=== PATIENT | male | born 1990 | race Caucasian/White ===

== ENCOUNTER 2016-08-31 02:44 | Inpatient (IN) | payer MEDICAID, OTHER ==
[~2016-08-31] VITALS: Ht 185.4 cm; Wt 80.1 kg
[2016-08-31] MEDS ORDERED: HALOPERIDOL LACTATE 5 MG/ML VIAL IM ONE (03:15)
[2016-08-31] MEDS ORDERED: DiphenhydrAMINE HCL 50 MG/ML VIAL IM ONE (03:15)
[2016-08-31] MEDS ORDERED: LORazepam 2 MG/ML VIAL IM ONE (03:15)
[2016-08-31 05:23] LABS: BASOPHILS % (AUTO) 0.2 % (0.0-2.0); EOSINOPHILS % (AUTO) 0.6 % (1.0-6.0); HEMATOCRIT 45.7 % (41-53); HEMOGLOBIN 14.9 g/dL (13.5-17.5); LYMPHOCYTES # (AUTO) 1.5 K/uL (1.0-4.8); LYMPHOCYTES % (AUTO) 13.7 % (22.0-44.0); MEAN CORPUSCULAR HEMOGLOBIN 27.9 pg (26.0-34.0); MEAN CORPUSCULAR HGB CONC 32.6 G/dL (31.0-37.0); MEAN CORPUSCULAR VOLUME 86 fL (80-100); MONOCYTES # (AUTO) 1.3 K/uL (0.1-1.0); MONOCYTES % (AUTO) 11.4 % (2.0-9.0); NEUTROPHILS # (AUTO) 8.1 K/uL (1.8-7.7); NEUTROPHILS % (AUTO) 74.1 % (40.0-70.0); PLATELET COUNT (AUTO) 226 K/uL (150-450); RED BLOOD CELL COUNT(AUTO) 5.33 MIL/uL (4.50-5.90); RED CELL DISTRIBUTION WIDTH 13.7 % (11.5-14.5)
[2016-08-31 05:25] LABS: ANION GAP 9 mmol/L (8-16); CALCIUM, TOTAL 9.7 mg/dL (8.8-10.5); CARBON DIOXIDE 29 mmol/L (22-29); CHLORIDE 101 mmol/L (98-107); CREATININE 1.08 mg/dL (0.60-1.30); GLOMERULAR FILTR. RATE CALC > 60 mL/min (>60); POTASSIUM 4.8 mmol/L (3.5-5.1); SODIUM SERUM 139 mmol/L (136-145); UREA NITROGEN, BLOOD 21 mg/dL (7-18)
[2016-08-31 05:30] LABS: ALANINE AMINOTRANSFERASE 22 U/L (12-78); ALBUMIN 4.3 g/dL (3.4-5.0); ASPARTATE AMINOTRANSFERASE 21 U/L (15-37); BILIRUBIN,TOTAL 0.8 mg/dL (0.1-1.0); TOTAL PROTEIN, SERUM 7.8 g/dL (6.4-8.2)
[2016-08-31 13:57] VITALS: BP 119/74
[2016-08-31] MEDS ORDERED: INFLUENZA VIRUS VACCINE QVS 2016-17 (3YR+)/PF 60 MCG/0.5 ML SYRINGE IM ONE (14:00)
[2016-09-01] MEDS: BENZTROPINE MESYLATE 0.5 MG TABLET PO SCH ×2 (09:00→17:00)
[2016-09-01] MEDS ORDERED: HALOPERIDOL 5 MG TABLET PO SCH (09:00)
[2016-09-01] MEDS: RisperiDONE 2 MG TABLET PO SCH (17:00)
[2016-09-01] MEDS ORDERED: ONDANSETRON HCL 4 MG TABLET PO PRN (17:45)
[2016-09-01] MEDS ORDERED: PETROLATUM,WHITE 71 GM JELLY TP PRN (17:45)
[2016-09-01] MEDS ORDERED: ALBUTEROL SULFATE HFA 90 MCG/PUFF 8 GM INHALER IH PRN (17:45)
[2016-09-01] MEDS ORDERED: ACETAMINOPHEN 325 MG TABLET PO PRN (17:45)
[2016-09-01] MEDS ORDERED: MAG HYDROX/AL HYDROX/SIMETH ES 30 ML SUSPENSION UDCUP PO PRN (17:45)
[2016-09-01] MEDS ORDERED: BACITRACIN 28.4 GM OINTMENT TP PRN (17:45)
[2016-09-01] MEDS ORDERED: MAGNESIUM HYDROXIDE SUSPENSION 30 ML UDCUP PO PRN (17:45)
[2016-09-01] MEDS ORDERED: BENZOCAINE/MENTHOL LOZENGE MM PRN (17:45)
[2016-09-01] MEDS ORDERED: IBUPROFEN 600 MG TABLET PO PRN (17:45)
[2016-09-01] MEDS ORDERED: CloNIDine HCL 0.1 MG TABLET PO PRN (17:45)
[2016-09-01] MEDS ORDERED: LOPERAMIDE HCL 2 MG CAPSULE PO PRN (17:45)
[2016-09-01] MEDS ORDERED: BENZTROPINE MESYLATE 0.5 MG TABLET ONE ×2 (23:33)
[2016-09-01] MEDS ORDERED: RisperiDONE 2 MG TABLET ONE (23:33)
[2016-09-02 04:25] VITALS: BP 117/83
[2016-09-02] MEDS: LORazepam 2 MG TABLET PO PRN ×4 (04:30→21:33)
[2016-09-02] MEDS: HALOPERIDOL 5 MG TABLET PO PRN ×3 (05:23→16:50)
[2016-09-02 08:12] VITALS: BP 114/77
[2016-09-02] MEDS: RisperiDONE 2 MG TABLET PO SCH ×2 (09:00→16:35)
[2016-09-02] MEDS: BENZTROPINE MESYLATE 0.5 MG TABLET PO SCH ×2 (09:00→16:35)
[2016-09-02 16:00] VITALS: BP 116/74
[2016-09-02] MEDS: ZOLPIDEM TARTRATE 10 MG TABLET PO PRN (21:24)
[2016-09-03 06:05] VITALS: BP 116/70
[2016-09-03 08:10] VITALS: BP 111/70
[2016-09-03] MEDS: BENZTROPINE MESYLATE 0.5 MG TABLET PO SCH ×2 (09:42→17:17)
[2016-09-03] MEDS: RisperiDONE 2 MG TABLET PO SCH ×2 (09:42→17:17)
[2016-09-03] MEDS ORDERED: GuaiFENesin/D-METHORPHAN/PHENYLEPH 5 ML LIQUID ORAL.SYG PO PRN (10:30)
[2016-09-03] MEDS: LORazepam 2 MG TABLET PO PRN ×3 (10:30→21:29)
[2016-09-03] MEDS: NICOTINE 21 MG/24 HOUR PATCH TD SCH (12:39)
[2016-09-03 16:08] VITALS: BP 125/77
[2016-09-03] MEDS: HALOPERIDOL 5 MG TABLET PO PRN (17:17)
[2016-09-03] MEDS: ZOLPIDEM TARTRATE 10 MG TABLET PO PRN (20:32)
[2016-09-04 06:15] VITALS: BP 119/75
[2016-09-04 08:10] VITALS: BP 124/66
[2016-09-04] MEDS: NICOTINE 21 MG/24 HOUR PATCH TD SCH (08:24)
[2016-09-04] MEDS: BENZTROPINE MESYLATE 0.5 MG TABLET PO SCH ×2 (08:25→16:42)
[2016-09-04] MEDS: HALOPERIDOL 5 MG TABLET PO PRN ×2 (08:25→17:41)
[2016-09-04] MEDS: RisperiDONE 2 MG TABLET PO SCH ×2 (08:25→16:42)
[2016-09-04] MEDS: LORazepam 2 MG TABLET PO PRN ×2 (08:25→17:41)
[2016-09-04 16:12] VITALS: BP 120/67
[2016-09-05 07:07] VITALS: BP 117/63
[2016-09-05 08:10] VITALS: BP 116/69
[2016-09-05] MEDS: RisperiDONE 2 MG TABLET PO SCH ×2 (09:12→16:37)
[2016-09-05] MEDS: NICOTINE 21 MG/24 HOUR PATCH TD SCH (09:12)
[2016-09-05] MEDS: BENZTROPINE MESYLATE 0.5 MG TABLET PO SCH ×2 (09:12→16:37)
[2016-09-05 16:10] VITALS: BP 112/65
[2016-09-05] MEDS: HALOPERIDOL 5 MG TABLET PO PRN (16:54)
[2016-09-05] MEDS: LORazepam 2 MG TABLET PO PRN (16:55)
[2016-09-05] MEDS: ZOLPIDEM TARTRATE 10 MG TABLET PO PRN (20:36)
[2016-09-06 05:33] VITALS: BP 111/72
[2016-09-06] MEDS: NICOTINE 21 MG/24 HOUR PATCH TD SCH (08:13)
[2016-09-06] MEDS: RisperiDONE 2 MG TABLET PO SCH (08:13)
[2016-09-06] MEDS: BENZTROPINE MESYLATE 0.5 MG TABLET PO SCH (08:13)
[2016-09-06 08:18] VITALS: BP 132/76
[2016-09-06] MEDS: LORazepam 2 MG TABLET PO PRN (09:26)
[2016-09-06] MEDS ORDERED: BENZ0.5T6 PO (12:10)
[2016-09-06] MEDS ORDERED: RISP2 PO (12:10)
== END 2016-09-06 13:30 | disposition home or self-care (01) | DRG 750 ==
LOC: EMS 02:45 → B3A 11:28
PROVIDERS: ADMIT Psychiatry & Neurology Child & Adolescent Psychiatry; ATTEND Psychiatry & Neurology Child & Adolescent Psychiatry
DX: F25.9 Schizoaffective disorder, unspecified (principal); F12.90 Cannabis use, unspecified, uncomplicated; G47.00 Insomnia, unspecified; Z28.21 Immunization not carried out because of patient refusal
CPT/HCPCS: 80307; 90471; 96372; 99291; G0480; J1200; J1630; J2060

== ENCOUNTER 2016-10-17 17:55 | Inpatient (IN) | payer MEDICAID, OTHER ==
[~2016-10-17] VITALS: Ht 185.4 cm; Wt 83.2 kg
[~2016-10-17 17:55] MED LIST: BENZ0.5T6 PO; RISP2 PO
[2016-10-17] MEDS ORDERED: DiphenhydrAMINE HCL 50 MG/ML VIAL IM ONE ×2 (19:30→23:00)
[2016-10-17] MEDS ORDERED: LORazepam 2 MG/ML VIAL IM ONE ×2 (19:30→23:00)
[2016-10-17] MEDS ORDERED: HALOPERIDOL LACTATE 5 MG/ML VIAL IM ONE ×2 (19:30→23:00)
[2016-10-17 20:13] LABS: BASOPHILS % (AUTO) 0.4 % (0.0-2.0); EOSINOPHILS % (AUTO) 0.3 % (1.0-6.0); HEMATOCRIT 39.6 % (41-53); HEMOGLOBIN 13.2 g/dL (13.5-17.5); LYMPHOCYTES # (AUTO) 1.6 K/uL (1.0-4.8); LYMPHOCYTES % (AUTO) 17.8 % (22.0-44.0); MEAN CORPUSCULAR HEMOGLOBIN 28.5 pg (26.0-34.0); MEAN CORPUSCULAR HGB CONC 33.3 G/dL (31.0-37.0); MEAN CORPUSCULAR VOLUME 86 fL (80-100); MONOCYTES # (AUTO) 0.6 K/uL (0.1-1.0); MONOCYTES % (AUTO) 6.9 % (2.0-9.0); NEUTROPHILS # (AUTO) 6.9 K/uL (1.8-7.7); NEUTROPHILS % (AUTO) 74.6 % (40.0-70.0); PLATELET COUNT (AUTO) 208 K/uL (150-450); RED BLOOD CELL COUNT(AUTO) 4.62 MIL/uL (4.50-5.90); RED CELL DISTRIBUTION WIDTH 15.1 % (11.5-14.5); WHITE BLOOD COUNT (AUTO) 9.3 K/uL (4.5-11.0)
[2016-10-17 20:22] LABS: ANION GAP 9 mmol/L (8-16); CALCIUM, TOTAL 8.9 mg/dL (8.8-10.5); CARBON DIOXIDE 28 mmol/L (22-29); CHLORIDE 106 mmol/L (98-107); GLOMERULAR FILTR. RATE CALC > 60 mL/min (>60); POTASSIUM 3.4 mmol/L (3.5-5.1); SODIUM SERUM 143 mmol/L (136-145); UREA NITROGEN, BLOOD 19 mg/dL (7-18)
[2016-10-17 20:28] LABS: ALANINE AMINOTRANSFERASE 20 U/L (12-78); ALBUMIN 3.8 g/dL (3.4-5.0); ASPARTATE AMINOTRANSFERASE 14 U/L (15-37); BILIRUBIN,TOTAL 0.4 mg/dL (0.1-1.0)
[2016-10-18 01:20] VITALS: BP 121/57
[2016-10-18 02:55] LABS: APPEARANCE,URINE TURBID (CLEAR); GLUCOSE, URINE (UA) NEGATIVE (NEGATIVE); KETONES,URINE NEGATIVE (NEGATIVE); LEUKOCYTE ESTERASE ,URINE NEGATIVE (NEGATIVE); OCCULT BLOOD,URINE NEGATIVE (NEGATIVE); PH,URINE 7.5 (5.0-8.0); PROTEIN,URINE NEGATIVE (NEGATIVE)
[2016-10-18 02:56] VITALS: BP 121/76
[2016-10-18 02:56] LABS: ADD UA MICROSCOPIC NO
[2016-10-18 03:00] VITALS: BP 121/57
[2016-10-18] MEDS ORDERED: INFLUENZA VIRUS VACCINE QVS 2016-17 (3YR+)/PF 60 MCG/0.5 ML SYRINGE IM ONE (03:15)
[2016-10-18 08:25] VITALS: BP 125/63
[2016-10-18] MEDS: RisperiDONE 1 MG TABLET PO SCH ×2 (08:35→17:22)
[2016-10-18] MEDS: BENZTROPINE MESYLATE 1 MG TABLET PO SCH ×2 (08:35→17:22)
[2016-10-18] MEDS ORDERED: PETROLATUM,WHITE 71 GM JELLY TP PRN (09:30)
[2016-10-18] MEDS ORDERED: ONDANSETRON HCL 4 MG TABLET PO PRN (09:30)
[2016-10-18] MEDS ORDERED: POTASSIUM CHLORIDE 20 MEQ ER TABLET PO ONE (09:30)
[2016-10-18] MEDS ORDERED: BACITRACIN 28.4 GM OINTMENT TP PRN (09:30)
[2016-10-18] MEDS ORDERED: CloNIDine HCL 0.1 MG TABLET PO PRN (09:30)
[2016-10-18] MEDS ORDERED: ACETAMINOPHEN 325 MG TABLET PO PRN (09:30)
[2016-10-18] MEDS ORDERED: MAG HYDROX/AL HYDROX/SIMETH ES 30 ML SUSPENSION UDCUP PO PRN (09:30)
[2016-10-18] MEDS ORDERED: IBUPROFEN 600 MG TABLET PO PRN (09:30)
[2016-10-18] MEDS ORDERED: LOPERAMIDE HCL 2 MG CAPSULE PO PRN (09:30)
[2016-10-18] MEDS ORDERED: ALBUTEROL SULFATE HFA 90 MCG/PUFF 8 GM INHALER IH PRN (09:30)
[2016-10-18] MEDS ORDERED: MAGNESIUM HYDROXIDE SUSPENSION 30 ML UDCUP PO PRN (09:30)
[2016-10-18] MEDS ORDERED: BENZOCAINE/MENTHOL LOZENGE [8 LOZENGES/PACKET] MM PRN (09:45)
[2016-10-18] MEDS: ZOLPIDEM TARTRATE 10 MG TABLET PO PRN (22:30)
[2016-10-18 23:00] VITALS: BP 125/63
[2016-10-19] MEDS: RisperiDONE 3 MG TABLET PO SCH ×2 (08:09→16:11)
[2016-10-19] MEDS: LORazepam 2 MG TABLET PO PRN ×2 (08:09→18:13)
[2016-10-19] MEDS: BENZTROPINE MESYLATE 1 MG TABLET PO SCH ×2 (08:09→16:11)
[2016-10-19 08:28] VITALS: BP 111/70
[2016-10-19 17:39] VITALS: BP 120/71
[2016-10-19] MEDS: ZOLPIDEM TARTRATE 10 MG TABLET PO PRN (20:30)
[2016-10-19] MEDS: HALOPERIDOL 5 MG TABLET PO PRN (22:31)
[2016-10-20 08:27] VITALS: BP 111/69
[2016-10-20] MEDS: BENZTROPINE MESYLATE 1 MG TABLET PO SCH ×2 (08:46→16:16)
[2016-10-20] MEDS: RisperiDONE 3 MG TABLET PO SCH ×2 (08:46→16:16)
[2016-10-20] MEDS: LORazepam 2 MG TABLET PO PRN (11:01)
[2016-10-20] MEDS: HALOPERIDOL 5 MG TABLET PO PRN (11:01)
[2016-10-20] MEDS ORDERED: RISP3 PO (15:05)
[2016-10-20] MEDS ORDERED: BENZ1TAB10 PO (15:05)
[2016-10-20 16:09] VITALS: BP_SYST 75
== END 2016-10-20 16:20 | disposition home or self-care (01) | DRG 750 ==
LOC: EMS 17:56 → 3EC 10-18 01:10
PROVIDERS: ADMIT Psychiatry & Neurology Child & Adolescent Psychiatry; ATTEND Psychiatry & Neurology Psychiatry
DX: F25.9 Schizoaffective disorder, unspecified (principal); Z78.1 Physical restraint status; F15.10 Other stimulant abuse, uncomplicated; F20.0 Paranoid schizophrenia; F17.210 Nicotine dependence, cigarettes, uncomplicated; G47.00 Insomnia, unspecified; E87.6 Hypokalemia; F17.200 Nicotine dependence, unspecified, uncomplicated; Z79.899 Other long term (current) drug therapy; Z71.6 Tobacco abuse counseling; Z28.21 Immunization not carried out because of patient refusal
CPT/HCPCS: 84132; 96372; 99285; G0480; J1200; J1630; J2060; J3535

== ENCOUNTER 2017-05-18 15:45 | Inpatient (IN) | payer MEDICAID, OTHER ==
[~2017-05-18] VITALS: Ht 185.4 cm; Wt 74.8 kg
[~2017-05-18 15:45] MED LIST changes: -BENZ0.5T6 PO; +BENZ1TAB10 PO; -RISP2 PO; +RISP3 PO
[2017-05-18 16:24] LABS: BASOPHILS % (AUTO) 1.4 % (0.0-2.0); EOSINOPHILS % (AUTO) 1.7 % (1.0-6.0); HEMATOCRIT 41.5 % (41-53); HEMOGLOBIN 14.3 g/dL (13.5-17.5); LYMPHOCYTES # (AUTO) 1.9 K/uL (1.0-4.8); LYMPHOCYTES % (AUTO) 25.3 % (22.0-44.0); MEAN CORPUSCULAR HEMOGLOBIN 30.4 pg (26.0-34.0); MEAN CORPUSCULAR HGB CONC 34.5 G/dL (31.0-37.0); MEAN CORPUSCULAR VOLUME 88 fL (80-100); MONOCYTES # (AUTO) 0.8 K/uL (0.1-1.0); MONOCYTES % (AUTO) 10.1 % (2.0-9.0); NEUTROPHILS # (AUTO) 4.7 K/uL (1.8-7.7); NEUTROPHILS % (AUTO) 61.5 % (40.0-70.0); PLATELET COUNT (AUTO) 220 K/uL (150-450); RED BLOOD CELL COUNT(AUTO) 4.71 MIL/uL (4.50-5.90); RED CELL DISTRIBUTION WIDTH 14.8 % (11.5-14.5); WHITE BLOOD COUNT (AUTO) 7.6 K/uL (4.5-11.0)
[2017-05-18 17:24] LABS: ANION GAP 7 mmol/L (8-16); CALCIUM, TOTAL 9.6 mg/dL (8.8-10.5); CARBON DIOXIDE 30 mmol/L (22-29); CHLORIDE 107 mmol/L (98-107); CREATININE 1.08 mg/dL (0.60-1.30); GLOMERULAR FILTR. RATE CALC > 60 mL/min (>60); POTASSIUM 5.2 mmol/L (3.5-5.1); SODIUM SERUM 144 mmol/L (136-145); UREA NITROGEN, BLOOD 14 mg/dL (7-18)
[2017-05-18 17:39] LABS: ALANINE AMINOTRANSFERASE 21 U/L (12-78); ALBUMIN 3.9 g/dL (3.4-5.0); ASPARTATE AMINOTRANSFERASE 17 U/L (15-37); BILIRUBIN,TOTAL 0.5 mg/dL (0.1-1.0); TOTAL PROTEIN, SERUM 7.3 g/dL (6.4-8.2)
[2017-05-18] MEDS ORDERED: LORazepam 2 MG TABLET PO ONE (18:45)
[2017-05-18] MEDS ORDERED: HALOPERIDOL 5 MG TABLET PO ONE (18:45)
[2017-05-18] MEDS ORDERED: DiphenhydrAMINE HCL 25 MG CAPSULE PO ONE (18:45)
[2017-05-18] MEDS: BENZTROPINE MESYLATE 1 MG TABLET PO SCH (20:43)
[2017-05-18] MEDS: RisperiDONE 2 MG TABLET PO SCH (20:43)
[2017-05-19] MEDS: RisperiDONE 2 MG TABLET PO SCH ×2 (08:56→17:12)
[2017-05-19] MEDS: BENZTROPINE MESYLATE 1 MG TABLET PO SCH ×2 (08:56→17:12)
[2017-05-19 13:19] VITALS: BP 110/63
[2017-05-19] MEDS ORDERED: INFLUENZA VIRUS VACCINE QVS 2017-18 (3YR+)/PF 60 MCG/0.5 ML SYRINGE IM ONE (14:15)
[2017-05-19 16:00] VITALS: BP 114/67
[2017-05-19] MEDS: HALOPERIDOL 5 MG TABLET PO PRN (17:13)
[2017-05-19] MEDS: LORazepam 2 MG TABLET PO PRN (17:13)
[2017-05-20 06:40] VITALS: BP 117/78
[2017-05-20 08:19] VITALS: BP 107/64
[2017-05-20] MEDS ORDERED: IBUPROFEN 600 MG TABLET PO PRN (09:15)
[2017-05-20] MEDS ORDERED: ACETAMINOPHEN 325 MG TABLET PO PRN (09:15)
[2017-05-20] MEDS ORDERED: ALBUTEROL SULFATE HFA 90 MCG/PUFF 8 GM INHALER IH PRN (09:15)
[2017-05-20] MEDS ORDERED: BACITRACIN 28.4 GM OINTMENT TP PRN (09:15)
[2017-05-20] MEDS ORDERED: BENZOCAINE/MENTHOL LOZENGE MM PRN (09:15)
[2017-05-20] MEDS ORDERED: MAG HYDROX/AL HYDROX/SIMETH ES 30 ML SUSPENSION UDCUP PO PRN (09:15)
[2017-05-20] MEDS ORDERED: ONDANSETRON HCL 4 MG TABLET PO PRN (09:15)
[2017-05-20] MEDS ORDERED: LOPERAMIDE HCL 2 MG CAPSULE PO PRN (09:15)
[2017-05-20] MEDS ORDERED: MAGNESIUM HYDROXIDE SUSPENSION 30 ML UDCUP PO PRN (09:15)
[2017-05-20] MEDS ORDERED: PETROLATUM,WHITE 71 GM JELLY TP PRN (09:15)
[2017-05-20] MEDS ORDERED: CloNIDine HCL 0.1 MG TABLET PO PRN (09:15)
[2017-05-20] MEDS: BENZTROPINE MESYLATE 1 MG TABLET PO SCH ×2 (09:16→17:21)
[2017-05-20] MEDS: RisperiDONE 2 MG TABLET PO SCH ×2 (09:16→17:21)
[2017-05-20] MEDS: LORazepam 2 MG TABLET PO PRN ×2 (09:16→17:21)
[2017-05-20 16:00] VITALS: BP 122/72
[2017-05-20] MEDS: HALOPERIDOL 5 MG TABLET PO PRN (17:21)
[2017-05-20] MEDS: ZOLPIDEM TARTRATE 10 MG TABLET PO PRN (20:50)
[2017-05-21 01:29] VITALS: BP 126/73
[2017-05-21 08:07] VITALS: BP 100/67
[2017-05-21] MEDS: LORazepam 2 MG TABLET PO PRN ×2 (09:42→17:21)
[2017-05-21] MEDS: BENZTROPINE MESYLATE 1 MG TABLET PO SCH ×2 (09:42→17:20)
[2017-05-21] MEDS: RisperiDONE 2 MG TABLET PO SCH ×2 (09:42→17:20)
[2017-05-21 16:00] VITALS: BP 110/74
[2017-05-21] MEDS: HALOPERIDOL 5 MG TABLET PO PRN (17:21)
[2017-05-21] MEDS: ZOLPIDEM TARTRATE 10 MG TABLET PO PRN (21:19)
[2017-05-22 03:16] VITALS: BP 101/60
[2017-05-22 08:14] VITALS: BP 108/63
[2017-05-22] MEDS: BENZTROPINE MESYLATE 1 MG TABLET PO SCH ×2 (09:51→16:24)
[2017-05-22] MEDS: RisperiDONE 2 MG TABLET PO SCH ×2 (09:51→16:24)
[2017-05-22] MEDS: NICOTINE 21 MG/24 HOUR PATCH TD SCH (10:09)
[2017-05-22 16:00] VITALS: BP 130/75
[2017-05-22] MEDS: HALOPERIDOL 5 MG TABLET PO PRN ×2 (16:24→21:42)
[2017-05-22] MEDS: LORazepam 2 MG TABLET PO PRN ×2 (16:24→20:38)
[2017-05-22] MEDS: ZOLPIDEM TARTRATE 10 MG TABLET PO PRN (20:38)
[2017-05-23 06:35] VITALS: BP 104/60
[2017-05-23 08:17] VITALS: BP 113/64
[2017-05-23] MEDS: NICOTINE 21 MG/24 HOUR PATCH TD SCH (08:39)
[2017-05-23] MEDS: LORazepam 2 MG TABLET PO PRN (08:39)
[2017-05-23] MEDS: RisperiDONE 2 MG TABLET PO SCH ×2 (08:39→16:13)
[2017-05-23] MEDS: BENZTROPINE MESYLATE 1 MG TABLET PO SCH ×2 (08:39→16:13)
[2017-05-23] MEDS ORDERED: RISP2 PO (09:33)
[2017-05-23] MEDS ORDERED: BENZ1TAB10 PO (09:33)
== END 2017-05-23 16:50 | disposition home or self-care (01) | DRG 750 ==
LOC: EMS 15:47 → B3A 05-19 11:52
DX: F25.1 Schizoaffective disorder, depressive type (principal); E87.5 Hyperkalemia; F15.10 Other stimulant abuse, uncomplicated; F17.210 Nicotine dependence, cigarettes, uncomplicated; K59.00 Constipation, unspecified; Z79.899 Other long term (current) drug therapy; Z72.89 Other problems related to lifestyle; Z71.41 Alcohol abuse counseling and surveillance of alcoholic; Z71.6 Tobacco abuse counseling; Z71.51 Drug abuse counseling and surveillance of drug abuser; Z28.21 Immunization not carried out because of patient refusal
CPT/HCPCS: 84132; 90471; 99285; G0480

== ENCOUNTER 2017-06-24 17:10 | Inpatient (IN) | payer MEDICAID ==
[~2017-06-24] VITALS: Ht 182.9 cm; Wt 2.7 kg
[~2017-06-24 17:10] MED LIST changes: +RISP2 PO; -RISP3 PO
[2017-06-24 18:42] LABS: BASOPHILS % (AUTO) 0.5 % (0.0-2.0); EOSINOPHILS % (AUTO) 0.2 % (1.0-6.0); HEMATOCRIT 39.7 % (41-53); HEMOGLOBIN 13.9 g/dL (13.5-17.5); LYMPHOCYTES # (AUTO) 2.2 K/uL (1.0-4.8); LYMPHOCYTES % (AUTO) 11.7 % (22.0-44.0); MEAN CORPUSCULAR HEMOGLOBIN 30.6 pg (26.0-34.0); MEAN CORPUSCULAR VOLUME 87 fL (80-100); MONOCYTES # (AUTO) 1.2 K/uL (0.1-1.0); MONOCYTES % (AUTO) 6.4 % (2.0-9.0); NEUTROPHILS # (AUTO) 15.5 K/uL (1.8-7.7); NEUTROPHILS % (AUTO) 81.2 % (40.0-70.0); PLATELET COUNT (AUTO) 259 K/uL (150-450); RED BLOOD CELL COUNT(AUTO) 4.54 MIL/uL (4.50-5.90); RED CELL DISTRIBUTION WIDTH 13.6 % (11.5-14.5); WHITE BLOOD COUNT (AUTO) 19.1 K/uL (4.5-11.0)
[2017-06-24 18:52] LABS: ANION GAP 14 mmol/L (8-16); CALCIUM, TOTAL 9.1 mg/dL (8.8-10.5); CARBON DIOXIDE 23 mmol/L (22-29); CHLORIDE 98 mmol/L (98-107); CREATININE 1.14 mg/dL (0.60-1.30); GLOMERULAR FILTR. RATE CALC > 60 mL/min (>60); POTASSIUM 3.7 mmol/L (3.5-5.1); SODIUM SERUM 135 mmol/L (136-145); UREA NITROGEN, BLOOD 24 mg/dL (7-18)
[2017-06-24 18:58] LABS: ALANINE AMINOTRANSFERASE 17 U/L (12-78); ALBUMIN 4.1 g/dL (3.4-5.0); ASPARTATE AMINOTRANSFERASE 16 U/L (15-37); BILIRUBIN,TOTAL 0.8 mg/dL (0.1-1.0); TOTAL PROTEIN, SERUM 7.3 g/dL (6.4-8.2)
[2017-06-24] MEDS ORDERED: ZOLPIDEM TARTRATE 10 MG TABLET PO PRN (20:15)
[2017-06-24] MEDS ORDERED: LORazepam 2 MG TABLET PO PRN (20:15)
[2017-06-24] MEDS ORDERED: OLANZapine 5 MG RAPDIS TABLET PO PRN (20:15)
[2017-06-24 20:31] LABS: CHOL/HDL RATIO 3.1 (4.2-7.3); THYROID STIMULATING HORMONE 1.04 uIU/mL (0.36-3.74)
[2017-06-24] MEDS ORDERED: LORazepam 2 MG/ML VIAL IM ONE (20:45)
[2017-06-24] MEDS ORDERED: DiphenhydrAMINE HCL 50 MG/ML VIAL IM ONE (20:45)
[2017-06-24] MEDS ORDERED: HALOPERIDOL LACTATE 5 MG/ML VIAL IM ONE (20:45)
[2017-06-25] MEDS ORDERED: INFLUENZA VIRUS VACCINE QVS 2017-18 (3YR+)/PF 60 MCG/0.5 ML SYRINGE IM ONE (05:00)
[2017-06-25 08:41] VITALS: BP 97/56
[2017-06-25] MEDS ORDERED: MAGNESIUM HYDROXIDE SUSPENSION 30 ML UDCUP PO PRN (12:30)
[2017-06-25] MEDS ORDERED: TUBERCULIN, PURIFIED PROTEIN DERIVATIVE 5 TU/0.1 ML SYG ID ONE (12:30)
[2017-06-25] MEDS ORDERED: MAG HYDROX/AL HYDROX/SIMETH ES 30 ML SUSPENSION UDCUP PO PRN (12:30)
[2017-06-25] MEDS ORDERED: LOPERAMIDE HCL 2 MG CAPSULE PO PRN (12:30)
[2017-06-25] MEDS ORDERED: PROMETHAZINE HCL 25 MG TABLET PO PRN (12:30)
[2017-06-25] MEDS ORDERED: ACETAMINOPHEN 325 MG TABLET PO PRN (12:30)
[2017-06-25] MEDS ORDERED: GuaiFENesin/D-METHORPHAN [SUGAR-FREE] 200-20MG/10 ML SYRUP UDCUP PO PRN (12:30)
[2017-06-25] MEDS ORDERED: HydrOXYzine PAMOATE 50 MG CAPSULE PO PRN (12:30)
[2017-06-25] MEDS: THIAMINE HCL 100 MG TABLET PO SCH (17:24)
[2017-06-25] MEDS ORDERED: RisperiDONE 1 MG TABLET PO PRN (17:30)
[2017-06-25] MEDS ORDERED: OLANZapine 5 MG RAPDIS TABLET PO SCH (21:00)
[2017-06-25] MEDS ORDERED: RisperiDONE 2 MG TABLET PO SCH (21:00)
[2017-06-26 06:23] LABS: EOSINOPHILS # (AUTO) 0.17 K/uL (0.00-0.70); EOSINOPHILS % (AUTO) 1.85 % (1.0-6.0); HEMATOCRIT 39.1 % (41-53); HEMOGLOBIN 13.2 g/dL (13.5-17.5); LYMPHOCYTES # (AUTO) 3.1 K/uL (1.0-4.8); LYMPHOCYTES % (AUTO) 33.4 % (22.0-44.0); MEAN CORPUSCULAR HEMOGLOBIN 30.2 pg (26.0-34.0); MEAN CORPUSCULAR HGB CONC 33.9 G/dL (31.0-37.0); MEAN CORPUSCULAR VOLUME 89 fL (80-100); MONOCYTES # (AUTO) 0.9 K/uL (0.1-1.0); MONOCYTES % (AUTO) 9.4 % (2.0-9.0); NEUTROPHILS % (AUTO) 54.3 % (40.0-70.0); PLATELET COUNT (AUTO) 200 K/uL (150-450); RED BLOOD CELL COUNT(AUTO) 4.39 MIL/uL (4.50-5.90); RED CELL DISTRIBUTION WIDTH 13.6 % (11.5-14.5); WHITE BLOOD COUNT (AUTO) 9.2 K/uL (4.5-11.0)
[2017-06-26 08:37] VITALS: BP 119/66
[2017-06-26] MEDS: NALTREXONE HCL 50 MG TABLET PO SCH (08:44)
[2017-06-26] MEDS: BENZTROPINE MESYLATE 0.5 MG TABLET PO SCH ×2 (08:44→17:43)
[2017-06-26] MEDS: THIAMINE HCL 100 MG TABLET PO SCH ×2 (08:44→17:43)
[2017-06-26] MEDS: MULTIVITAMINS WITH MINERALS, THERAPEUTIC TABLET PO SCH (08:44)
[2017-06-26] MEDS: FOLIC ACID 1 MG TABLET PO SCH (08:44)
[2017-06-26] MEDS ORDERED: BENZ0.5T6 PO (11:14)
[2017-06-26] MEDS ORDERED: RISP4 PO (11:14)
[2017-06-26] MEDS ORDERED: NALT50TA PO (11:14)
[2017-06-26 19:43] VITALS: BP 106/59
[2017-06-26] MEDS ORDERED: RisperiDONE 4 MG TABLET PO SCH (21:00)
[2017-06-27 08:40] VITALS: BP 101/59
[2017-06-27] MEDS: BENZTROPINE MESYLATE 0.5 MG TABLET PO SCH (09:27)
[2017-06-27] MEDS: FOLIC ACID 1 MG TABLET PO SCH (09:27)
[2017-06-27] MEDS: MULTIVITAMINS WITH MINERALS, THERAPEUTIC TABLET PO SCH (09:27)
[2017-06-27] MEDS: THIAMINE HCL 100 MG TABLET PO SCH (09:27)
[2017-06-27] MEDS: NALTREXONE HCL 50 MG TABLET PO SCH (09:28)
== END 2017-06-27 15:00 | disposition home or self-care (01) | DRG 750 ==
LOC: EMS 17:11 → 3EC 20:42
PROVIDERS: ADMIT Psychiatry & Neurology Psychiatry; ATTEND Psychiatry & Neurology Psychiatry
DX: F25.9 Schizoaffective disorder, unspecified (principal); E87.1 Hypo-osmolality and hyponatremia; R45.851 Suicidal ideations; D72.829 Elevated white blood cell count, unspecified; F15.10 Other stimulant abuse, uncomplicated; F17.210 Nicotine dependence, cigarettes, uncomplicated; D64.9 Anemia, unspecified; G47.00 Insomnia, unspecified; Z65.3 Problems related to other legal circumstances; Z91.19 Patient's noncompliance with other medical treatment and regimen; Z72.89 Other problems related to lifestyle; Z71.6 Tobacco abuse counseling; Z71.51 Drug abuse counseling and surveillance of drug abuser; Z71.41 Alcohol abuse counseling and surveillance of alcoholic; Z28.21 Immunization not carried out because of patient refusal
CPT/HCPCS: 82306; 84295; 84443; 87081; 96372; 99291; G0480; J1200; J1630; J2060

== ENCOUNTER 2017-07-01 01:41 | Inpatient (IN) | payer MEDICAID, OTHER ==
[~2017-07-01] VITALS: Ht 182.9 cm; Wt 82.5 kg
[~2017-07-01 01:41] MED LIST changes: +BENZ0.5T6 PO; -BENZ1TAB10 PO; +NALT50TA PO; -RISP2 PO; +RISP4 PO
[2017-07-01 02:15] LABS: BASOPHILS % (AUTO) 0.3 % (0.0-2.0); EOSINOPHILS % (AUTO) 1.3 % (1.0-6.0); HEMATOCRIT 38.5 % (41-53); HEMOGLOBIN 13.3 g/dL (13.5-17.5); LYMPHOCYTES # (AUTO) 2.5 K/uL (1.0-4.8); LYMPHOCYTES % (AUTO) 21.1 % (22.0-44.0); MEAN CORPUSCULAR HEMOGLOBIN 30.5 pg (26.0-34.0); MEAN CORPUSCULAR HGB CONC 34.5 G/dL (31.0-37.0); MEAN CORPUSCULAR VOLUME 88 fL (80-100); MONOCYTES % (AUTO) 8.2 % (2.0-9.0); NEUTROPHILS # (AUTO) 8.2 K/uL (1.8-7.7); NEUTROPHILS % (AUTO) 69.1 % (40.0-70.0); PLATELET COUNT (AUTO) 237 K/uL (150-450); RED BLOOD CELL COUNT(AUTO) 4.36 MIL/uL (4.50-5.90); RED CELL DISTRIBUTION WIDTH 13.5 % (11.5-14.5); WHITE BLOOD COUNT (AUTO) 11.9 K/uL (4.5-11.0)
[2017-07-01 02:26] LABS: ANION GAP 9 mmol/L (8-16); CALCIUM, TOTAL 9.4 mg/dL (8.8-10.5); CARBON DIOXIDE 30 mmol/L (22-29); CHLORIDE 103 mmol/L (98-107); CREATININE 0.93 mg/dL (0.60-1.30); GLOMERULAR FILTR. RATE CALC > 60 mL/min (>60); POTASSIUM 3.6 mmol/L (3.5-5.1); SODIUM SERUM 142 mmol/L (136-145); UREA NITROGEN, BLOOD 29 mg/dL (7-18)
[2017-07-01 02:32] LABS: ALANINE AMINOTRANSFERASE 18 U/L (12-78); ASPARTATE AMINOTRANSFERASE 11 U/L (15-37); BILIRUBIN,TOTAL 0.7 mg/dL (0.1-1.0); TOTAL PROTEIN, SERUM 7.1 g/dL (6.4-8.2)
[2017-07-01] MEDS ORDERED: DiphenhydrAMINE HCL 50 MG/ML VIAL IM ONE (02:45)
[2017-07-01] MEDS ORDERED: LORazepam 2 MG/ML VIAL IM ONE (02:45)
[2017-07-01] MEDS ORDERED: HALOPERIDOL LACTATE 5 MG/ML VIAL IM ONE (02:45)
[2017-07-01] MEDS ORDERED: OLANZapine 5 MG RAPDIS TABLET PO PRN (04:15)
[2017-07-01 04:57] LABS: APPEARANCE,URINE TURBID (CLEAR); GLUCOSE, URINE (UA) NEGATIVE (NEGATIVE); KETONES,URINE NEGATIVE (NEGATIVE); LEUKOCYTE ESTERASE ,URINE NEGATIVE (NEGATIVE); OCCULT BLOOD,URINE NEGATIVE (NEGATIVE); PH,URINE 5.5 (5.0-8.0); PROTEIN,URINE POS 1+ (NEGATIVE)
[2017-07-01 04:59] LABS: ADD UA MICROSCOPIC YES
[2017-07-01 05:03] LABS: CHOL/HDL RATIO 2.4 (4.2-7.3); THYROID STIMULATING HORMONE 1.05 uIU/mL (0.36-3.74)
[2017-07-01 05:08] LABS: RBC,URINE None Seen /HPF (0-2); SQUAMOUS EPITHELIAL CELL,UR Rare /LPF (None Seen); WBC,URINE None Seen /HPF (0-5)
[2017-07-01 05:09] LABS: AMORPHOUS SEDIMENT,UR Many /LPF (None Seen); CALCIUM OXALATE CRYSTALS,UR Few /LPF (None Seen)
[2017-07-01 13:05] VITALS: BP 124/86
[2017-07-01] MEDS ORDERED: GuaiFENesin/D-METHORPHAN [SUGAR-FREE] 200-20MG/10 ML SYRUP UDCUP PO PRN (15:45)
[2017-07-01] MEDS ORDERED: LOPERAMIDE HCL 2 MG CAPSULE PO PRN (15:45)
[2017-07-01] MEDS ORDERED: MAG HYDROX/AL HYDROX/SIMETH ES 30 ML SUSPENSION UDCUP PO PRN (15:45)
[2017-07-01] MEDS ORDERED: HydrOXYzine PAMOATE 50 MG CAPSULE PO PRN (15:45)
[2017-07-01] MEDS ORDERED: ACETAMINOPHEN 325 MG TABLET PO PRN (15:45)
[2017-07-01] MEDS ORDERED: PROMETHAZINE HCL 25 MG TABLET PO PRN (15:45)
[2017-07-01] MEDS ORDERED: MAGNESIUM HYDROXIDE SUSPENSION 30 ML UDCUP PO PRN (15:45)
[2017-07-01] MEDS: THIAMINE HCL 100 MG TABLET PO SCH (16:32)
[2017-07-01] MEDS: BENZTROPINE MESYLATE 0.5 MG TABLET PO SCH (16:32)
[2017-07-01] MEDS ORDERED: RisperiDONE MICROSPHERES 50 MG/2 ML SYRINGE IM ONE (17:00)
[2017-07-01] MEDS: RisperiDONE 4 MG TABLET PO SCH (21:00)
[2017-07-02 08:34] VITALS: BP 103/60
[2017-07-02] MEDS: BENZTROPINE MESYLATE 0.5 MG TABLET PO SCH ×2 (08:52→17:30)
[2017-07-02] MEDS: MULTIVITAMINS WITH MINERALS, THERAPEUTIC TABLET PO SCH (08:53)
[2017-07-02] MEDS: NALTREXONE HCL 50 MG TABLET PO SCH (08:53)
[2017-07-02] MEDS: THIAMINE HCL 100 MG TABLET PO SCH ×2 (08:53→17:29)
[2017-07-02] MEDS: FOLIC ACID 1 MG TABLET PO SCH (08:53)
[2017-07-02 16:00] VITALS: BP 109/60
[2017-07-02] MEDS: RisperiDONE 1 MG TABLET PO PRN (17:29)
[2017-07-02] MEDS: RisperiDONE 4 MG TABLET PO SCH (21:00)
[2017-07-03 09:04] VITALS: BP 116/61
[2017-07-03] MEDS: NALTREXONE HCL 50 MG TABLET PO SCH (09:57)
[2017-07-03] MEDS: BENZTROPINE MESYLATE 0.5 MG TABLET PO SCH ×2 (09:57→16:03)
[2017-07-03] MEDS: FOLIC ACID 1 MG TABLET PO SCH (09:57)
[2017-07-03] MEDS: MULTIVITAMINS WITH MINERALS, THERAPEUTIC TABLET PO SCH (09:57)
[2017-07-03] MEDS: THIAMINE HCL 100 MG TABLET PO SCH ×2 (09:57→16:03)
[2017-07-03 16:00] VITALS: BP 114/69
[2017-07-03] MEDS: LORazepam 2 MG TABLET PO PRN (17:44)
[2017-07-03] MEDS: RisperiDONE 4 MG TABLET PO SCH (20:25)
[2017-07-03] MEDS: ZOLPIDEM TARTRATE 10 MG TABLET PO PRN (20:25)
[2017-07-04 08:30] VITALS: BP 116/71
[2017-07-04] MEDS: THIAMINE HCL 100 MG TABLET PO SCH ×2 (08:54→17:08)
[2017-07-04] MEDS: FOLIC ACID 1 MG TABLET PO SCH (08:54)
[2017-07-04] MEDS: MULTIVITAMINS WITH MINERALS, THERAPEUTIC TABLET PO SCH (08:54)
[2017-07-04] MEDS: BENZTROPINE MESYLATE 0.5 MG TABLET PO SCH ×2 (08:54→17:08)
[2017-07-04] MEDS: NALTREXONE HCL 50 MG TABLET PO SCH (08:55)
[2017-07-04] MEDS: NICOTINE 21 MG/24 HOUR PATCH TD SCH (10:11)
[2017-07-04 16:41] VITALS: BP 103/76
[2017-07-04] MEDS: LORazepam 2 MG TABLET PO PRN (17:08)
[2017-07-04] MEDS: ZOLPIDEM TARTRATE 10 MG TABLET PO PRN (20:06)
[2017-07-04] MEDS: RisperiDONE 4 MG TABLET PO SCH (20:08)
[2017-07-05] MEDS: THIAMINE HCL 100 MG TABLET PO SCH ×2 (08:26→16:49)
[2017-07-05] MEDS: NALTREXONE HCL 50 MG TABLET PO SCH (08:28)
[2017-07-05] MEDS: MULTIVITAMINS WITH MINERALS, THERAPEUTIC TABLET PO SCH (08:28)
[2017-07-05] MEDS: BENZTROPINE MESYLATE 0.5 MG TABLET PO SCH ×2 (08:28→16:49)
[2017-07-05] MEDS: FOLIC ACID 1 MG TABLET PO SCH (08:28)
[2017-07-05] MEDS: RisperiDONE 1 MG TABLET PO PRN (08:28)
[2017-07-05] MEDS: NICOTINE 21 MG/24 HOUR PATCH TD SCH (08:31)
[2017-07-05 08:37] VITALS: BP 119/76
[2017-07-05] MEDS: LORazepam 2 MG TABLET PO PRN ×2 (15:39→21:38)
[2017-07-05 16:35] VITALS: BP 102/65
[2017-07-05] MEDS: RisperiDONE 4 MG TABLET PO SCH ×2 (19:26→20:03)
[2017-07-05] MEDS: ZOLPIDEM TARTRATE 10 MG TABLET PO PRN (20:30)
[2017-07-06 06:56] LABS: HEMATOCRIT 37.1 % (41-53); HEMOGLOBIN 12.8 g/dL (13.5-17.5); MEAN CORPUSCULAR HEMOGLOBIN 30.4 pg (26.0-34.0); MEAN CORPUSCULAR HGB CONC 34.4 G/dL (31.0-37.0); MEAN CORPUSCULAR VOLUME 89 fL (80-100); PLATELET COUNT (AUTO) 217 K/uL (150-450); RED BLOOD CELL COUNT(AUTO) 4.19 MIL/uL (4.50-5.90); RED CELL DISTRIBUTION WIDTH 13.5 % (11.5-14.5)
[2017-07-06 07:24] LABS: ANION GAP 4 mmol/L (8-16); CALCIUM, TOTAL 8.6 mg/dL (8.8-10.5); CARBON DIOXIDE 30 mmol/L (22-29); CHLORIDE 106 mmol/L (98-107); CREATININE 0.92 mg/dL (0.60-1.30); GLOMERULAR FILTR. RATE CALC > 60 mL/min (>60); PHOSPHORUS 3.7 mg/dL (2.5-4.9); POTASSIUM 4.3 mmol/L (3.5-5.1); SODIUM SERUM 140 mmol/L (136-145); UREA NITROGEN, BLOOD 22 mg/dL (7-18)
[2017-07-06 08:09] LABS: EOSINOPHILS % (MANUAL) 2 % (1-6); LYMPHOCYTES % (MANUAL) 33 % (22-44); RBC MORPHOLOGY COMMENT NORMAL RBC MORPH; TOTAL CELLS COUNTED 100
[2017-07-06] MEDS: FOLIC ACID 1 MG TABLET PO SCH (08:52)
[2017-07-06] MEDS: THIAMINE HCL 100 MG TABLET PO SCH ×2 (08:52→16:14)
[2017-07-06] MEDS: BENZTROPINE MESYLATE 0.5 MG TABLET PO SCH ×2 (08:53→16:14)
[2017-07-06] MEDS: NALTREXONE HCL 50 MG TABLET PO SCH (08:53)
[2017-07-06] MEDS: MULTIVITAMINS WITH MINERALS, THERAPEUTIC TABLET PO SCH (08:53)
[2017-07-06] MEDS: NICOTINE 21 MG/24 HOUR PATCH TD SCH (08:53)
[2017-07-06 09:06] VITALS: BP 109/69
[2017-07-06 16:21] VITALS: BP 103/68
[2017-07-06] MEDS: FERROUS SULFATE 325 MG EC TABLET PO SCH (17:27)
[2017-07-06] MEDS: ZOLPIDEM TARTRATE 10 MG TABLET PO PRN (20:39)
[2017-07-06] MEDS: RisperiDONE 4 MG TABLET PO SCH (20:39)
[2017-07-06] MEDS: LORazepam 2 MG TABLET PO PRN (22:19)
[2017-07-07] MEDS: FERROUS SULFATE 325 MG EC TABLET PO SCH ×2 (06:31→16:44)
[2017-07-07 08:29] VITALS: BP 124/84
[2017-07-07] MEDS: NICOTINE 21 MG/24 HOUR PATCH TD SCH (08:49)
[2017-07-07] MEDS: THIAMINE HCL 100 MG TABLET PO SCH ×2 (08:50→16:44)
[2017-07-07] MEDS: NALTREXONE HCL 50 MG TABLET PO SCH (08:50)
[2017-07-07] MEDS: FOLIC ACID 1 MG TABLET PO SCH (08:50)
[2017-07-07] MEDS: BENZTROPINE MESYLATE 0.5 MG TABLET PO SCH ×2 (08:50→16:44)
[2017-07-07 16:54] VITALS: BP 102/67
[2017-07-07] MEDS: ZOLPIDEM TARTRATE 10 MG TABLET PO PRN (20:07)
[2017-07-07] MEDS: RisperiDONE 4 MG TABLET PO SCH (20:07)
[2017-07-08] MEDS: FERROUS SULFATE 325 MG EC TABLET PO SCH ×2 (07:11→16:03)
[2017-07-08 08:49] VITALS: BP 118/67
[2017-07-08] MEDS: BENZTROPINE MESYLATE 0.5 MG TABLET PO SCH ×2 (09:53→16:03)
[2017-07-08] MEDS: FOLIC ACID 1 MG TABLET PO SCH (09:54)
[2017-07-08] MEDS: THIAMINE HCL 100 MG TABLET PO SCH ×2 (09:54→16:03)
[2017-07-08] MEDS: NICOTINE 21 MG/24 HOUR PATCH TD SCH (09:54)
[2017-07-08] MEDS: RisperiDONE 4 MG TABLET PO SCH ×2 (09:54→20:30)
[2017-07-08] MEDS: NALTREXONE HCL 50 MG TABLET PO SCH (09:54)
[2017-07-08] MEDS: RisperiDONE 1 MG TABLET PO PRN (09:54)
[2017-07-08] MEDS ORDERED: NALT50TA PO (13:00)
[2017-07-08] MEDS ORDERED: RISPC50 IM (13:00)
[2017-07-08] MEDS ORDERED: BENZ0.5T6 PO (13:00)
[2017-07-08] MEDS ORDERED: RisperiDONE MICROSPHERES 50 MG/2 ML SYRINGE IM SCH (13:15)
[2017-07-08] MEDS ORDERED: RISP3 PO (14:14)
[2017-07-08 20:43] VITALS: BP 121/73
[2017-07-08] MEDS: ZOLPIDEM TARTRATE 10 MG TABLET PO PRN (21:26)
[2017-07-09] MEDS: FERROUS SULFATE 325 MG EC TABLET PO SCH (06:42)
[2017-07-09] MEDS: NALTREXONE HCL 50 MG TABLET PO SCH (08:15)
[2017-07-09] MEDS: NICOTINE 21 MG/24 HOUR PATCH TD SCH (08:15)
[2017-07-09] MEDS: THIAMINE HCL 100 MG TABLET PO SCH (08:15)
[2017-07-09] MEDS: FOLIC ACID 1 MG TABLET PO SCH (08:15)
[2017-07-09] MEDS: BENZTROPINE MESYLATE 0.5 MG TABLET PO SCH (08:16)
[2017-07-09 08:43] VITALS: BP 110/55
[2017-07-15] MEDS ORDERED: RisperiDONE MICROSPHERES 50 MG/2 ML SYRINGE IM SCH (09:00)
== END 2017-07-09 09:45 | disposition home or self-care (01) | DRG 750 ==
LOC: EMS 01:43 → 3EC 11:55
PROVIDERS: ADMIT Psychiatry & Neurology Psychiatry; ATTEND Psychiatry & Neurology Psychiatry
DX: F25.0 Schizoaffective disorder, bipolar type (principal); Z91.19 Patient's noncompliance with other medical treatment and regimen; F32.9 Major depressive disorder, single episode, unspecified; F15.10 Other stimulant abuse, uncomplicated; F12.90 Cannabis use, unspecified, uncomplicated; F17.200 Nicotine dependence, unspecified, uncomplicated; G47.00 Insomnia, unspecified; D64.9 Anemia, unspecified; Z63.9 Problem related to primary support group, unspecified; Z65.3 Problems related to other legal circumstances; Z79.899 Other long term (current) drug therapy; Z56.0 Unemployment, unspecified; Z71.51 Drug abuse counseling and surveillance of drug abuser; Z71.41 Alcohol abuse counseling and surveillance of alcoholic; Z72.89 Other problems related to lifestyle; Z71.6 Tobacco abuse counseling
CPT/HCPCS: 83735; 84100; 84443; 85007; 87081; 96372; 99285; G0480; J1200; J1630; J2060; J2794

== ENCOUNTER 2018-12-27 13:27 | Inpatient (IN) | payer MEDICAID, OTHER ==
[~2018-12-27] VITALS: Ht 185.4 cm; Wt 85.9 kg
[~2018-12-27 13:27] MED LIST changes: +BENZ0.5T44 PO; -BENZ0.5T6 PO; +RISP3 PO; -RISP4 PO; +RISPC50 IM
[2018-12-27] MEDS ORDERED: HALOPERIDOL LACTATE 5 MG/ML VIAL IM ONE (16:15)
[2018-12-27] MEDS ORDERED: LORazepam 2 MG/ML VIAL IM ONE (16:15)
[2018-12-27] MEDS ORDERED: DiphenhydrAMINE HCL 50 MG/ML VIAL IM ONE (16:15)
[2018-12-27 16:55] LABS: BASOPHILS % (AUTO) 0.6 % (0.0-2.0); EOSINOPHILS % (AUTO) 0.3 % (1.0-6.0); HEMATOCRIT 41.6 % (41-53); HEMOGLOBIN 14.2 g/dL (13.5-17.5); LYMPHOCYTES # (AUTO) 2.1 K/uL (1.0-4.8); LYMPHOCYTES % (AUTO) 17.3 % (22.0-44.0); MEAN CORPUSCULAR HEMOGLOBIN 29.1 pg (26.0-34.0); MEAN CORPUSCULAR HGB CONC 34.2 G/dL (31.0-37.0); MEAN CORPUSCULAR VOLUME 85 fL (80-100); MONOCYTES % (AUTO) 7.8 % (2.0-9.0); NEUTROPHILS # (AUTO) 9.1 K/uL (1.8-7.7); PLATELET COUNT (AUTO) 260 K/uL (150-450); RED BLOOD CELL COUNT(AUTO) 4.88 MIL/uL (4.50-5.90); RED CELL DISTRIBUTION WIDTH 13.5 % (11.5-14.5)
[2018-12-27 17:04] LABS: AMPHET/METH SCREEN,URINE POSITIVE (NEGATIVE); BARBITURATE SCREEN, URINE NEGATIVE (NEGATIVE); BENZODIAZEPINES SCREEN,URINE NEGATIVE (NEGATIVE); CANNABINOID SCREEN,URINE POSITIVE (NEGATIVE); COCAINE SCREEN,URINE NEGATIVE (NEGATIVE); METHADONE SCREEN, URINE NEGATIVE (NEGATIVE); OPIATE SCREEN,URINE NEGATIVE (NEGATIVE)
[2018-12-27 17:05] LABS: PHENCYCLIDINE SCREEN,URINE NEGATIVE (NEGATIVE)
[2018-12-27 17:10] LABS: ANION GAP 9 mmol/L (8-16); CALCIUM, TOTAL 9.4 mg/dL (8.8-10.5); CARBON DIOXIDE 28 mmol/L (22-29); CHLORIDE 103 mmol/L (98-107); CREATININE 1.02 mg/dL (0.60-1.30); GLOMERULAR FILTR. RATE CALC > 60 mL/min (>60); GLUCOSE,RANDOM 99 mg/dL (70-110); POTASSIUM 3.8 mmol/L (3.5-5.1); SODIUM SERUM 140 mmol/L (136-145); UREA NITROGEN, BLOOD 13 mg/dL (7-18)
[2018-12-27 17:15] LABS: ALANINE AMINOTRANSFERASE 18 U/L (12-78); ALBUMIN 4.3 g/dL (3.4-5.0); ALKALINE PHOSPHATASE 70 U/L (46-116); ASPARTATE AMINOTRANSFERASE 16 U/L (15-37); BILIRUBIN,TOTAL 0.6 mg/dL (0.1-1.0)
[2018-12-27 19:50] VITALS: BP 127/75
[2018-12-27] MEDS ORDERED: MAG HYDROX/AL HYDROX/SIMETH ES 30 ML SUSPENSION UDCUP PO PRN (20:00)
[2018-12-27] MEDS ORDERED: ONDANSETRON HCL 4 MG TABLET PO PRN (20:00)
[2018-12-27] MEDS ORDERED: MAGNESIUM HYDROXIDE SUSPENSION 30 ML UDCUP PO PRN (20:00)
[2018-12-27] MEDS ORDERED: LOPERAMIDE HCL 2 MG CAPSULE PO PRN (20:00)
[2018-12-27] MEDS ORDERED: ACETAMINOPHEN 325 MG TABLET PO PRN (20:00)
[2018-12-27] MEDS ORDERED: PETROLATUM,WHITE 28 GM JELLY TP PRN (20:00)
[2018-12-27] MEDS ORDERED: CloNIDine HCL 0.1 MG TABLET PO PRN (20:00)
[2018-12-27] MEDS ORDERED: BACITRACIN 28.4 GM OINTMENT TP PRN (20:00)
[2018-12-27] MEDS ORDERED: BENZOCAINE/MENTHOL LOZENGE MM PRN (20:00)
[2018-12-27] MEDS ORDERED: IBUPROFEN 600 MG TABLET PO PRN (20:00)
[2018-12-27] MEDS ORDERED: ALBUTEROL SULFATE HFA 90 MCG/PUFF 8 GM INHALER IH PRN (20:00)
[2018-12-28 00:05] VITALS: BP 116/68
[2018-12-28 07:33] LABS: HEMOGLOBIN A1C 5.5 % (4.5-6.2)
[2018-12-28 07:53] LABS: CHOL/HDL RATIO 3.3 (4.2-7.3); FREE T4 (FREE THYROXINE) 1.42 ng/dL (0.76-1.46); THYROID STIMULATING HORMONE 1.25 uIU/mL (0.36-3.74)
[2018-12-28] MEDS: NICOTINE 21 MG/24 HOUR PATCH TD SCH (08:02)
[2018-12-28 08:29] VITALS: BP 123/69
[2018-12-28] MEDS ORDERED: OMEPRAZOLE 20 MG CAPSULE PO SCH (09:00)
[2018-12-28] MEDS ORDERED: DOCUSATE SODIUM 100 MG CAPSULE PO SCH (09:00)
[2018-12-28] MEDS ORDERED: BACITRACIN 28.4 GM OINTMENT TP SCH (09:00)
[2018-12-28] MEDS: BENZTROPINE MESYLATE 0.5 MG TABLET PO SCH (16:16)
[2018-12-28] MEDS: RisperiDONE 3 MG TABLET PO SCH (16:16)
[2018-12-28 16:48] VITALS: BP 123/72
[2018-12-29 04:53] VITALS: BP 119/68
[2018-12-29] MEDS ORDERED: OMEPRAZOLE 20 MG CAPSULE PO PRN (08:15)
[2018-12-29] MEDS ORDERED: DOCUSATE SODIUM 100 MG CAPSULE PO PRN (08:15)
[2018-12-29] MEDS: LORazepam 2 MG TABLET PO PRN ×2 (08:17→17:04)
[2018-12-29] MEDS: RisperiDONE 3 MG TABLET PO SCH ×2 (08:17→17:04)
[2018-12-29] MEDS: BENZTROPINE MESYLATE 0.5 MG TABLET PO SCH ×2 (08:18→17:04)
[2018-12-29] MEDS: NICOTINE 21 MG/24 HOUR PATCH TD SCH (08:22)
[2018-12-29] MEDS ORDERED: RisperiDONE MICROSPHERES 50 MG/2 ML SYRINGE IM ONE (10:00)
[2018-12-29 16:00] VITALS: BP 110/69
[2018-12-29] MEDS: HALOPERIDOL 5 MG TABLET PO PRN (17:54)
[2018-12-30 01:05] VITALS: BP 100/75
[2018-12-30 07:59] LABS: BAND NEUTROPHILS % (MANUAL) 0 % (0-5)
[2018-12-30 08:09] LABS: HEMATOCRIT 41.6 % (41-53); HEMOGLOBIN 14.2 g/dL (13.5-17.5); MEAN CORPUSCULAR HEMOGLOBIN 29.6 pg (26.0-34.0); MEAN CORPUSCULAR HGB CONC 34.2 G/dL (31.0-37.0); MEAN CORPUSCULAR VOLUME 87 fL (80-100); PLATELET COUNT (AUTO) 220 K/uL (150-450); RED CELL DISTRIBUTION WIDTH 13.5 % (11.5-14.5)
[2018-12-30 08:13] VITALS: BP 106/65
[2018-12-30 08:42] LABS: ANION GAP 7 mmol/L (8-16); CALCIUM, TOTAL 8.8 mg/dL (8.8-10.5); CARBON DIOXIDE 29 mmol/L (22-29); CHLORIDE 107 mmol/L (98-107); CREATININE 0.96 mg/dL (0.60-1.30); GLOMERULAR FILTR. RATE CALC > 60 mL/min (>60); GLUCOSE,RANDOM 81 mg/dL (70-110); PHOSPHORUS 4.3 mg/dL (2.5-4.9); POTASSIUM 4.5 mmol/L (3.5-5.1); SODIUM SERUM 143 mmol/L (136-145); UREA NITROGEN, BLOOD 16 mg/dL (7-18)
[2018-12-30] MEDS: NICOTINE 21 MG/24 HOUR PATCH TD SCH (09:55)
[2018-12-30] MEDS: BENZTROPINE MESYLATE 0.5 MG TABLET PO SCH ×2 (09:55→16:32)
[2018-12-30] MEDS: RisperiDONE 3 MG TABLET PO SCH ×2 (09:55→16:32)
[2018-12-30 10:21] LABS: EOSINOPHILS % (MANUAL) 1 % (1-6); LYMPHOCYTES % (MANUAL) 27 % (22-44); MONOCYTES % (MANUAL) 6 % (2-9); SEGMENTED NEUTROPHILS % 66 % (40-70)
[2018-12-30] MEDS ORDERED: RISP3 PO (10:56)
[2018-12-30] MEDS: LORazepam 2 MG TABLET PO PRN (16:32)
[2018-12-30] MEDS: HALOPERIDOL 5 MG TABLET PO PRN (16:32)
[2018-12-30] MEDS: ZOLPIDEM TARTRATE 10 MG TABLET PO PRN (20:30)
[2018-12-31 06:19] VITALS: BP 140/68
[2018-12-31 07:59] VITALS: BP 109/69
[2018-12-31] MEDS: LORazepam 2 MG TABLET PO PRN ×3 (08:04→21:39)
[2018-12-31] MEDS: MAGNESIUM OXIDE 400 MG TABLET PO SCH ×2 (08:04→17:39)
[2018-12-31] MEDS: NICOTINE 21 MG/24 HOUR PATCH TD SCH (08:04)
[2018-12-31] MEDS: BENZTROPINE MESYLATE 0.5 MG TABLET PO SCH ×2 (08:04→17:39)
[2018-12-31] MEDS: RisperiDONE 3 MG TABLET PO SCH ×2 (08:04→17:39)
[2018-12-31 16:07] VITALS: BP 123/68
[2018-12-31] MEDS: HALOPERIDOL 5 MG TABLET PO PRN (17:39)
[2018-12-31] MEDS: ZOLPIDEM TARTRATE 10 MG TABLET PO PRN (21:39)
[2019-01-01 06:10] VITALS: BP 116/61
[2019-01-01 08:36] VITALS: BP 113/64
[2019-01-01] MEDS: NICOTINE 21 MG/24 HOUR PATCH TD SCH (09:00)
[2019-01-01] MEDS: MAGNESIUM OXIDE 400 MG TABLET PO SCH (09:03)
[2019-01-01] MEDS: BENZTROPINE MESYLATE 0.5 MG TABLET PO SCH (09:03)
[2019-01-01] MEDS: RisperiDONE 3 MG TABLET PO SCH (09:03)
== END 2019-01-01 14:20 | disposition home or self-care (01) | DRG 750 ==
LOC: EMS 13:28 → B3A 18:05
PROVIDERS: ADMIT Psychiatry & Neurology Psychiatry; ATTEND Psychiatry & Neurology Psychiatry
DX: F25.9 Schizoaffective disorder, unspecified (principal); Z91.14 Patient's other noncompliance with medication regimen; F15.10 Other stimulant abuse, uncomplicated; F17.200 Nicotine dependence, unspecified, uncomplicated; F41.9 Anxiety disorder, unspecified; G47.00 Insomnia, unspecified; K59.00 Constipation, unspecified
CPT/HCPCS: 83036; 83735; 84100; 84439; 84443; 85007; 96372; G0480; J1200; J1630; J2060; J2794